=== PATIENT | male | born 1970 | race African-American/Black ===

== ENCOUNTER 2018-07-31 16:25 | Emergency (ER) | payer SELFPAY ==
[~2018-07-31] VITALS: Ht 180.3 cm; Wt 166.0 kg
[2018-07-31 16:32] VITALS: BP 156/115
== END 2018-08-01 08:46 | disposition left against medical advice (07) ==
LOC: ER 08-01 08:46
DX: Z53.21 Procedure and treatment not carried out due to patient leaving prior to being seen by health care provider (principal); J45.909 Unspecified asthma, uncomplicated; I50.9 Heart failure, unspecified; E11.9 Type 2 diabetes mellitus without complications